=== PATIENT | female | born 1980 | race African-American/Black ===

== ENCOUNTER 2018-08-25 23:37 | Emergency (ER) | payer MEDICAID ==
[~2018-08-25] VITALS: Ht 154.9 cm; Wt 56.7 kg
[2018-08-25 23:50] VITALS: BP 124/63
--- NOTE | 2018-08-25 23:50 | NUR ---
ED Nurse Note: Pt arrived ED from home, c/o abdominal pain and vaginal bleeding again after it was stopped for few weeks. Pt is A/O X 4. Vital signs stable at this time, waitng for orders.
--- NOTE | 2018-08-25 23:58 | NUR ---
ED Nurse Note: Urine sample collected and sent to Lab.
--- NOTE | 2018-08-26 00:31 | Emergency Room Report ---
History of Present Illness General Chief Complaint: Female Urogenital Problems Source: Patient Present Illness [facility] This a 37-year-old female with no significant past medical history. She presents with chief complaint of vaginal bleeding. She said that this month her menstrual flow came a little bit early. And then she started bleeding again today. She did a home test was negative. No nausea no vomiting for no pain. She wanted to make sure she is not . No other complaint. Not on control pill. Allergies: Coded Allergies: No Known Allergies (Unverified , 08/25/18) Patient History Past Medical History: see triage record, old chart reviewed Past Surgical History: none Pertinent Family History: none Social History: Reports: drug use - Marijuana; Denies: smoking Last Menstrual Period: 08/10/18 Now: No Immunizations: other Reviewed Nursing Documentation: PMH: Agreed; PSxH: Agreed Nursing Documentation-PMH Past Medical History: No History, Except For Hx Asthma: Yes Review of Systems Eye: Denies: eye pain, blurred vision ENT: Denies: ear pain, nose congestion, throat swelling Respiratory: Denies: cough, shortness of breath Cardiovascular: Denies: chest pain, palpitations Gastrointestinal: Denies: abdominal pain, diarrhea, nausea, vomiting Genitourinary: Reports: vag bleed/dc Musculoskeletal: Denies: back pain, joint pain Skin: Denies: rash Neurological: Denies: headache, numbness Endocrine: Denies: increased thirst, increased urine Hematologic/Lymphatic: Denies: easy bruising All Other Systems: negative except mentioned in HPI Physical Exam Vital Signs Date Time Temp Pulse Resp B/P (MAP) Pulse Ox O2 Delivery O2 Flow Rate FiO2 08/25/18 23:39 98.4 81 20 122/67 98 Room Air vitals normal Sp02 EP Interpretation: reviewed, normal General Appearance: well appearing, no apparent distress, alert Head: normocephalic, atraumatic Eyes: bilateral eye PERRL, bilateral eye EOMI ENT: hearing grossly normal, normal pharynx Neck: full range of motion, supple, no meningismus Respiratory: chest non-tender, lungs clear, normal breath sounds Cardiovascular #1: regular rate, rhythm, no murmur Gastrointestinal: normal bowel sounds, non tender, no mass, no organomegaly, no bruit, non-distended Musculoskeletal: back normal, gait/station normal, normal range of motion Psychiatric: mood/affect normal Skin: warm/dry Medical Decision Making Diagnostic Impression: Primary Impression: Dysfunctional uterine bleeding ER Course Patient with dysfunctional uterine bleeding. No evidence of any . No evidence of any ectopic. We'll discharge home. Last Vital Signs Date Time Temp Pulse Resp B/P (MAP) Pulse Ox O2 Delivery O2 Flow Rate FiO2 08/25/18 23:50 98.3 82 20 124/63 98 Room Air Status: unchanged Disposition: HOME, SELF-CARE Condition: Stable Scripts No Active Prescriptions or Reported Meds Referrals: NON PHYSICIAN (PCP) Additional Instructions: Follow-up with your doctor in 7 days. You may need a referral to see a truck driver's offsider. Return if symptom worsen. Neil Cuellar MD Aug 26, 2018 00:31
[2018-08-26 00:38] LABS: APPEARANCE,URINE CLEAR; BILIRUBIN, URINE NEGATIVE (NEGATIVE); COLOR,URINE PALE YELLOW; GLUCOSE, URINE (UA) NEGATIVE (NEGATIVE); KETONES,URINE NEGATIVE (NEGATIVE); LEUKOCYTE ESTERASE ,URINE NEGATIVE (NEGATIVE); NITRITE,URINE NEGATIVE (NEGATIVE); PH,URINE 6.5 (4.5-8.0); PROTEIN,URINE NEGATIVE (NEGATIVE); UROBILINOGEN,URINE NORMAL MG/DL (0.0-1.0)
[2018-08-26] MEDS ORDERED: PSEUDOEPHEDRINE60 MG PO (00:51)
[2018-08-26] MEDS ORDERED: TESSALON PERLE100 MG ORAL (00:52)
[2018-08-26 01:03] VITALS: BP 126/61
--- NOTE | 2018-08-26 01:03 | NUR ---
ER DISCHARGE NOTE: Patient is cleared to be discharged per Dr. Cuellar, pt is aox4, on room air, with stable vital signs. pt was given dc and prescription instructions, pt was able to verbalize understanding, pt id band removed . pt is able to ambulate with steady gait. pt took all belongings.
== END 2018-08-26 01:03 | disposition home or self-care (01) ==
LOC: EMR 08-26 00:01
DX: N93.8 Other specified abnormal uterine and vaginal bleeding (principal); F12.90 Cannabis use, unspecified, uncomplicated
CPT/HCPCS: 80307; 81003; 81025; 99283

== ENCOUNTER 2019-03-02 15:38 | Emergency (ER) | payer MEDICAID ==
[~2019-03-02] VITALS: Ht 157.5 cm; Wt 56.7 kg
[~2019-03-02 15:38] MED LIST: PSEUDOEPHEDRINE60 MG PO; TESSALON PERLE100 MG ORAL
--- NOTE | 2019-03-02 15:54 | NUR ---
ED Nurse Note: Patient walked in c/o chest congestion, cough with yellow phlegm x 1 month; boil in the vaginal area x 2-3 days. Pt is A&O x4, V/S stable with no s/s of acute distress noted at this time. PA at bedside evaluating the pt.
[2019-03-02 16:01] VITALS: BP 108/63
--- NOTE | 2019-03-02 17:23 | Emergency Room Report ---
History of Present Illness General Chief Complaint: Skin Rash/Abscess Present Illness HPI 38-year-old female presents to the emergency department complaining of 8 out of 10 severity pain, tenderness, swelling and palpable mass in the genital area x2 days. Patient reports progression in size from what she describes was a pimple. Patient states she had similar lesion several months ago and the exact same spot which responded well to tea tree oil. Patient states that this lesion has not. She denies swollen tender lymph nodes, vaginal discharge, history of STI, fevers or chills. Patient denies lesions elsewhere on the body. Denies rash. No other aggravating or relieving factors at this time Allergies: Coded Allergies: No Known Allergies (Unverified , 08/25/18) Patient History Past Medical History: see triage record Past Surgical History: none Pertinent Family History: none Last Menstrual Period: 02/28/2019 Reviewed Nursing Documentation: PMH: Agreed; PSxH: Agreed Nursing Documentation-PMH Past Medical History: No History, Except For Hx Cardiac Problems: No Hx Hypertension: No Hx Pacemaker: No Hx Asthma: Yes Hx COPD: No Hx Diabetes: No Hx Cancer: No Hx Gastrointestinal Problems: No Hx Dialysis: No History Of Psychiatric Problem: No Hx Neurological Problems: No Hx Cerebrovascular Accident: No Hx Seizures: Yes Review of Systems All Other Systems: negative except mentioned in HPI Physical Exam Vital Signs Date Time Temp Pulse Resp B/P (MAP) Pulse Ox O2 Delivery O2 Flow Rate FiO2 03/02/19 15:54 98.2 79 16 108/63 (78) 99 Room Air Sp02 EP Interpretation: reviewed, normal General Appearance: no apparent distress, alert, GCS 15, non-toxic Head: normocephalic, atraumatic Eyes: bilateral eye normal inspection, bilateral eye PERRL ENT: hearing grossly normal, normal voice Neck: full range of motion Respiratory: chest non-tender, lungs clear, normal breath sounds, no respiratory distress, no accessory muscle use, no wheezing, speaking full sentences Cardiovascular #1: regular rate, rhythm Genitourinary: no CVA tenderness, other - indurated 1cm erythematous papule with purulent head. no LAD. no d/c, blisters or vessicles. non-painful to light superficial touch, ttp to deep/moderate pressure. Musculoskeletal: back normal, gait/station normal, normal range of motion, non- tender Neurologic: alert, oriented x3, responsive, motor strength/tone normal, sensory intact, speech normal, grossly normal Psychiatric: judgement/insight normal Skin: other - indurated 1cm erythematous papule with purulent head. no LAD. no d/c, blisters or vessicles. non-painful to light superficial touch, ttp to deep/ moderate pressure. Lymphatic: no adenopathy Procedures Incision and Drainage Incision and Drainage : Consent: Verbal Site: right external vaginal labia Blade Size: 11 I & D Procedure: betadine prep, sterile drapes applied, sterile dressing applied Wound Location: other - right external vaginal labia Wound's Depth, Shape: linear Wound Length (cm): 1 Wound Explored: no obvious purulent d/c expressed Irrigated w/ Saline (ccs): 20 Anesthesia: Lidocaine w/ Epi Volume Anesthetic (ccs): 1 Splint Applied?: No Sling Applied?: No Patient Tolerated: Well Complications: None Medical Decision Making PA Attestation Dr. Atkins Is my supervising Physician whom patient management has been discussed with. Diagnostic Impression: Primary Impression: Vaginal lesion Additional Impression: Abscess ER Course indurated 1cm erythematous papule with purulent head. no LAD. no d/c, blisters or vessicles. non-painful to light superficial touch, ttp to deep/moderate pressure. Ddx considered but are not limited to cellulitis, abscess, cystic acne, necrotizing fasciitis, insect bite, syphillis just to name a few. Vital signs: are WNL, pt. is afebrile H&PE are most consistent with ST abscess of the right vaginal labia. questionable syphilis lesion ORDERS: none required at this time, the diagnosis is clinical ED INTERVENTIONS: -I & D. - PCN G 2.4IU IM -I do not identify an emergent condition at this time. With current presentation , pt. is stable for close outpatient follow up and conservative treatment. D/ w pt. to return promptly to ED with worsening or new symptoms.- Pt. verbalizes' understanding and agreement with proposed treatment plan. DISCHARGE: At this time pt. is stable for d/c to home. Will provide printed patient care instructions, and any necessary prescriptions. Care plan and follow up instructions have been discussed with the patient prior to discharge. Last Vital Signs Date Time Temp Pulse Resp B/P (MAP) Pulse Ox O2 Delivery O2 Flow Rate FiO2 03/02/19 16:01 98.2 72 16 108/63 99 Room Air Disposition: HOME, SELF-CARE Condition: Stable Scripts Cephalexin* (KEFLEX*) 500 Mg Capsule 500 MG ORAL EVERY 12 HOURS for 7 Days, #14 CAP 0 Refills Prov: Katja Ngo 03/02/19 Mupirocin* (MUPIROCIN*) 22 Gm Oint...g. 1 APPLIC TOPIC THREE TIMES A DAY, #22 GM 1 Refill Prov: Katja Ngo 03/02/19 Patient Instructions: Abscess, Syphilis Additional Instructions: Take medications as directed. Follow up with a Primary Care Provider in 3-5 days for DERMATOLOGY REFERRAL , even if your symptoms have resolved. --Please review list of primary care clinics, if you do not already have a primary care provider Return sooner to ED if new symptoms occur, or current symptoms become worse. - Please note that this Emergency Department Report was dictated using [employer] technology software, occasionally this can lead to erroneous entry secondary to interpretation by the dictation equipment. Katja Ngo Mar 02, 2019 17:23
[2019-03-02] MEDS ORDERED: CEPHALEXIN500 MG ORAL (17:24)
[2019-03-02] MEDS ORDERED: MUPIROCIN22 GM TOPIC (17:24)
[2019-03-02] MEDS ORDERED: Bicillin LA 2.4MMU/4ML SYR IM ONE (17:30)
[2019-03-02 17:51] VITALS: BP 115/68
--- NOTE | 2019-03-02 17:53 | NUR ---
ER DISCHARGE NOTE: Patient is cleared to be discharged per ERMD, pt is aox4, on room air, with stable vital signs. pt was given dc and prescription instructions, pt was able to verbalize understanding, pt id band removed. pt is able to ambulate with steady gait. pt took all belongings.
== END 2019-03-02 17:54 | disposition home or self-care (01) ==
LOC: EMR 16:33
DX: N76.4 Abscess of vulva (principal); J45.909 Unspecified asthma, uncomplicated
CPT/HCPCS: 10060; 96372; 99283

== ENCOUNTER 2019-04-21 11:35 | Emergency (ER) | payer BC, MEDICAID ==
[~2019-04-21] VITALS: Ht 154.9 cm; Wt 59.0 kg
[~2019-04-21 11:35] MED LIST changes: +CEPHALEXIN500 MG ORAL; +MUPIROCIN22 GM TOPIC
--- NOTE | 2019-04-21 11:44 | NUR ---
ED Nurse Note: called for triage. not in waiting room.
--- NOTE | 2019-04-21 11:54 | NUR ---
ED Nurse Note: Pt not found in waiting room.
[2019-04-21] MEDS ORDERED: GABAPENTIN300 MG ORAL (12:19)
[2019-04-21] MEDS ORDERED: Ketorolac 30mg Inj IM ONE (14:00)
--- NOTE | 2019-04-21 15:00 | NUR ---
ED Nurse Note: PT came from home by car to ED; after slipping and falling at a local [employer] restaurant approximately around 0300 this morning. PT states she fell predominantly on her L-side landing on her L-back and L-buttocks area. VS stable, no respiratory distress on RA.
[2019-04-21 15:02] VITALS: BP 128/80
--- NOTE | 2019-04-21 15:32 | NUR ---
ED Nurse Note: PT stated she is menstruating currently when urine sample given.
--- NOTE | 2019-04-21 15:46 | Diagnostic Imaging Report ---
Indication: Trauma, pain, status post fall Technique: One view of the chest, 2 views of the right rib Comparison: none Findings: Lungs and pleural spaces are clear. The heart size is normal. No pneumothorax. Rib radiographs demonstrate no evidence of acute fracture. Impression: Negative This agrees with the preliminary interpretation provided overnight by [facility] service.
--- NOTE | 2019-04-21 15:59 | Diagnostic Imaging Report ---
Indication: Trauma, pain, status post fall Technique: 3 views of the lumbar spine Comparison: None Findings: Bony alignment is normal. Vertebral body heights are preserved. The disc spaces are preserved. No acute fractures. No dislocations. Pedicles are intact. Sacral arches are preserved. Impression: Negative This agrees with the preliminary interpretation provided overnight by [facility] service.
--- NOTE | 2019-04-21 16:01 | Diagnostic Imaging Report ---
Indication: Pain, status post fall Technique: 2 views of the left hip, one view of the pelvis Comparison: none Findings: No acute fractures. No dislocations. The joint spaces are preserved. Impression: Negative
--- NOTE | 2019-04-21 16:06 | Emergency Room Report ---
History of Present Illness General Chief Complaint: Multiple Trauma/Fall Source: Patient Present Illness HPI 38-year-old female with history of seizure, unknown which coming in reporting that she takes gabapentin for seizure activity and no Keppra, here complaining of pain in the left side of body after fall yesterday. Patient reports that she slipped inside the bathroom and fell and landed on the left hip, left lumbar region and left flank. No ecchymosis is noted. Patient is rating his pain 10 out of 10 however denies radiation of pain and tingling numbness sensation. Patient has not taken any pain medication. Denies head injury, loss of consciousness, dizziness, headache, nausea vomiting. Denies abdominal pain, chest pain, shortness of breath, palpitation, and other associated symptoms. Denies all other injuries. Denies saddle paresthesia, urinary or bowel incontinence. Allergies: Coded Allergies: No Known Allergies (Unverified , 08/25/18) Patient History Past Medical History: see triage record Past Surgical History: unable to obtain Pertinent Family History: none Last Menstrual Period: currently on her menstrual period Now: No Immunizations: UTD Reviewed Nursing Documentation: PMH: Agreed; PSxH: Agreed Nursing Documentation-PMH Past Medical History: No History, Except For Hx Cardiac Problems: No Hx Hypertension: No Hx Pacemaker: No Hx Asthma: Yes Hx COPD: No Hx Diabetes: No Hx Cancer: No Hx Gastrointestinal Problems: No Hx Dialysis: No Hx Neurological Problems: No Hx Cerebrovascular Accident: No Hx Seizures: Yes Review of Systems All Other Systems: negative except mentioned in HPI Physical Exam Vital Signs Date Time Temp Pulse Resp B/P (MAP) Pulse Ox O2 Delivery O2 Flow Rate FiO2 04/21/19 12:15 98.8 103 16 111/65 (80) 95 Room Air Sp02 EP Interpretation: reviewed, normal General Appearance: no apparent distress, alert, GCS 15, non-toxic Head: normocephalic, atraumatic Eyes: bilateral eye normal inspection, bilateral eye PERRL ENT: hearing grossly normal, normal pharynx, no angioedema, normal voice Neck: full range of motion, supple, supple/symm/no masses Respiratory: chest non-tender, lungs clear, normal breath sounds, no rhonchi, no wheezing, speaking full sentences Cardiovascular #1: regular rate, rhythm, no edema, no murmur, no rub, normal capillary refill Cardiovascular #2: 2+ radial (R), 2+ radial (L), 2+ femoral (R), 2+ femoral (L) , 2+ dorsalis pedis (R), 2+ dorsalis pedis (L) Gastrointestinal: normal bowel sounds, non tender, soft, non-distended, no guarding, no rebound Genitourinary: no CVA tenderness Musculoskeletal: back normal, digits/nails normal, gait/station normal, normal range of motion, non-tender, no calf tenderness, pelvis stable Neurologic: alert, oriented x3, responsive, motor strength/tone normal, sensory intact, speech normal Psychiatric: judgement/insight normal, memory normal, mood/affect normal, no suicidal/homicidal ideation Skin: no rash, other - No ecchymosis noted Lymphatic: normal inspection, no adenopathy Medical Decision Making PA Attestation All my diagnosis and treatment plans were reviewed ad discussed with my supervising physician Dr. Rouse Diagnostic Impression: Primary Impression: Lumbar contusion Additional Impression: Contusion, hip ER Course 38-year-old female with history of seizure, unknown which coming in reporting that she takes gabapentin for seizure activity and no Keppra, here complaining of pain in the left side of body after fall yesterday. Patient reports that she slipped inside the bathroom and fell and landed on the left hip, left lumbar region and left flank. No ecchymosis is noted. Patient is rating his pain 10 out of 10 however denies radiation of pain and tingling numbness sensation. Patient has not taken any pain medication. Denies head injury, loss of consciousness, dizziness, headache, nausea vomiting. Denies abdominal pain, chest pain, shortness of breath, palpitation, and other associated symptoms. Denies all other injuries. Denies saddle paresthesia, urinary or bowel incontinence. Ddx considered but are not limited to: Lumbar spine sprain, strain, fracture, contusion, neuropathy Vital signs: are WNL, pt. is afebrile H&PE are most consistent with: Lumbar contusion, hip contusion ORDERS: Lumbar spine x-ray, hip x-ray, chest x-ray and rib series on the left side, ibuprofen, lidocaine patch ER intervention: Toradol DISCHARGE: At this time pt. is stable for d/c to home. Will provide printed patient care instructions, and any necessary prescriptions. Care plan and follow up instructions have been discussed with the patient prior to discharge. Advised patient to follow-up with her primary care provider for possible physical therapy referral. Avoid strenuous physical activity. If worsening symptoms return to emergency room. Chest X-Ray Diagnostic Results Chest X-Ray Diagnostic Results : Chest X-Ray Ordered: Yes # of Views/Limited/Complete: 1 View Indication: Other EP Interpretation: Yes PA Xray: Interpretation reviewed, by supervising MD, and agrees with findings. Interpretation: no consolidation, no effusion, no pneumothorax Impression: No acute disease Electronically Signed by: Mona Mark PA-C Other X-Ray Diagnostic Results Other X-Ray Diagnostic Results #1: X-Ray ordered: L spine # of Views/Limited Vs Complete: 3 View Indication: Pain EP Interpretation: Yes PA Xray: Interpretation reviewed, by supervising MD, and agrees with findings. Interpretation: no dislocation, no soft tissue swelling, no fractures Impression: No acute disease Electronically Signed by: Mona Mark PA-C Other X-Ray Diagnostic Results #2: X-Ray ordered: hip # of Views/Limited Vs Complete: 3 View Indication: Pain EP Interpretation: Yes PA Xray: Interpretation reviewed, by supervising MD, and agrees with findings. Interpretation: no dislocation, no soft tissue swelling, no fractures Impression: No acute disease Electronically Signed by: Mona Mark PA-C Other X-Ray Diagnostic Results #3: X-Ray ordered: ribs # of Views/Limited Vs Complete: 3 View Indication: Pain EP Interpretation: Yes PA Xray: Interpretation reviewed, by supervising MD, and agrees with findings. Interpretation: no dislocation, no soft tissue swelling, no fractures Impression: No acute disease Electronically Signed by: Mona Mark PA-C Last Vital Signs Date Time Temp Pulse Resp B/P (MAP) Pulse Ox O2 Delivery O2 Flow Rate FiO2 04/21/19 15:10 76 13 Room Air 04/21/19 15:02 98.6 128/80 98 Disposition: HOME, SELF-CARE Condition: Stable Scripts Ibuprofen (Ibu) 800 Mg Tablet 800 MG PO BID, #20 TAB Prov: Mona Cancino 04/21/19 Lidocaine Patch* (Lidoderm Patch*) 1 Each Adh..patch 1 PATCH TOPIC DAILY, #7 PATCH 0 Refills Patch(es) may remain in place for up to 12 hours in any 24-hour period. Prov: Mona Cancino 04/21/19 Referrals: NON PHYSICIAN (PCP) Patient Instructions: Contusion, [id number] Additional Instructions: Take medication as directed, avoid strenuous physical activity, if worsening symptoms return to emergency room, you need to follow-up with primary care provider. Mona Cancino Apr 21, 2019 16:06
[2019-04-21] MEDS ORDERED: IBU800 MG PO (16:07)
[2019-04-21] MEDS ORDERED: LIDODERM700 M1 TOPIC (16:07)
[2019-04-21 16:20] VITALS: BP 135/86
--- NOTE | 2019-04-21 16:20 | NUR ---
ER DISCHARGE NOTE: Patient is cleared to be discharged per ERMD, pt is aox4, on room air, with stable vital signs. pt was given dc and prescription instructions, pt was able to verbalize understanding, pt id band and iv site removed without complications. pt is able to ambulate with steady gait. pt took all belongings. PT VS BP 135/86; HR 79; RR 15; o2 sat 99% on RA; oral temp 98.3
== END 2019-04-21 16:20 | disposition home or self-care (01) ==
LOC: EMR 12:36
DX: S30.0XXA Contusion of lower back and pelvis, initial encounter (principal); S70.02XA Contusion of left hip, initial encounter; J45.909 Unspecified asthma, uncomplicated; R07.81 Pleurodynia; W01.0XXA Fall on same level from slipping, tripping and stumbling without subsequent striking against object, initial encounter; Y92.002 Bathroom of unspecified non-institutional (private) residence as the place of occurrence of the external cause
CPT/HCPCS: 71101; 72020; 73510; 81025; 96372; J1885; Z7502; 73502; 99284